=== PATIENT | male | born 1975 | race Two or more races ===

== ENCOUNTER 2018-10-13 12:42 | Emergency (ER) | payer SELFPAY ==
[~2018-10-13] VITALS: Ht 172.7 cm; Wt 70.8 kg
[2018-10-13 14:00] VITALS: BP 156/88
== END 2018-10-13 14:46 | disposition home or self-care (01) ==
LOC: ER 12:42
DX: L84 Corns and callosities (principal); F17.210 Nicotine dependence, cigarettes, uncomplicated